=== PATIENT | female | born 1965 | race African-American/Black ===

== ENCOUNTER 2016-12-03 22:15 | Emergency (ER) | payer SELFPAY ==
[~2016-12-03] VITALS: Ht 167.6 cm; Wt 106.3 kg
[~2016-12-03 22:15] MED LIST: NOHOMEMEDS
[2016-12-04 00:27] LABS: HEMATOCRIT 36.6 % (36.0-46.0); MCH 26.7 PG (29.0-34.0); MCV 76.4 FL (83-99); MEAN PLAT.VOLUME 10.7 uM^3 (9.5-12.4); PLATELET COUNT 284 K/uL (156-360); RED BLOOD COUNT 4.79 M/uL (3.80-5.20); WHITE BLOOD COUNT 15.7 K/uL (4.1-10.2)
[2016-12-04 00:36] LABS: CHLORIDE 105 mEq/L (99-109); POTASSIUM 3.6 mEq/L (3.7-5.4); SODIUM 137 mEq/L (136-147)
[2016-12-04 00:38] LABS: GLUCOSE 157 mg/dL (70-99)
[2016-12-04 00:39] LABS: ANION GAP 11 MEQ/L (2-14)
[2016-12-04 00:40] LABS: TOTAL BILIRUBIN 0.6 mg/dL (0.0-1.0)
[2016-12-04 00:42] LABS: ALKALINE PHOSPHATASE 65 IU/L (3-129); GFR ESTIMATE (CALCULATED) > 59 mL/min/
[2016-12-04 00:43] LABS: UREA NITROGEN (BUN) 7 mg/dL (9-23)
[2016-12-04 00:45] LABS: LIPASE 13 U/L (1.0-51.0)
[2016-12-04 00:50] LABS: ADD MIUA? NO; BILIRUBIN NEGATIVE; BLOOD NEGATIVE; COLOR YELLOW ((YELLOW)); GLUCOSE (STRIP) NEGATIVE; KETONES 40; LEUKOCYTES NEGATIVE; NITRITE NEGATIVE; PH, URINE 8.5 (5-8); PROTEIN (STRIP) 30; SPECIFIC GRAVITY 1.014 (1.000-1.030); UCUL ADDED? NO; UROBILINOGEN 0.2 MG/DL (0.2-1.0)
[2016-12-04 00:55] LABS: QUANTITATIVE HCG < 4.0 MIU/ML
[2016-12-04] MEDS ORDERED: ZOFRAN4 MG PO (02:02)
[2016-12-04] MEDS ORDERED: NORCO 5/3251 TABLET PO (02:03)
[2016-12-04 02:15] VITALS: BP 135/82
== END 2016-12-04 02:17 | disposition left against medical advice (07) ==
LOC: RME 22:15 → EME 22:15 → RME 12-04 02:17
DX: K80.20 Calculus of gallbladder without cholecystitis without obstruction (principal); D72.829 Elevated white blood cell count, unspecified; I10 Essential (primary) hypertension
CPT/HCPCS: 74177; 80053; 81003; 83690; 84702; 85027; 99281; 99284; J7030